=== PATIENT | female | born 1970 | race Caucasian/White ===

== ENCOUNTER 2016-08-15 12:51 | Outpatient (CLI) | payer OTHER ==
--- NOTE | 2016-08-15 13:53 | DIAGNOSTIC IMAGING REPORT ---
PROCEDURE: MG BILATERAL SCREENING W/CAD INDICATION: Grandmother with a history of breast cancer. TECHNIQUE: Bilateral CC and MLO digital views. COMPARISON: Baseline FINDINGS: Computer-aided detection applied. Mildly dense. 6 mm nodule in the left axillary tail a central radiolucency consistent with a small intramammary lymph node. No pleomorphic microcalcifications. IMPRESSION: 1. 6 mm left axillary tail intramammary lymph node RESULT CODE: 2- Benign finding(s). A. A negative report should not delay biopsy if a dominant or clinically suspicious mass is present. 10-15% of cancers are not identified by x-ray. B. A negative report may reinforce clinical impression. C. Adenosis and dense breasts may obscure an underlying neoplasm. D. False positive reports average 6-10%. E.. A yearly screening mammogram is recommended. A reminder letter will be scheduled.
== END 2016-08-15 23:00 | disposition home or self-care (01) ==
LOC: MAM SRH 12:51
DX: Z12.31 Encounter for screening mammogram for malignant neoplasm of breast (principal)